=== PATIENT | male | born 1980 | race Caucasian/White ===

== ENCOUNTER 2018-02-10 14:29 | Day surgery (SDC) | payer OTHER, MEDICAID ==
[2018-02-10] MEDS ORDERED: LR 1,000 ML IV ONE (15:10)
[2018-02-10] MEDS ORDERED: LIDOCAINE 1% 2 ML INJ ID PRN (15:10)
--- NOTE | 2018-02-10 16:43 | PDANEPAE ---
ANE History of Present Illness Inguinal hernia ANE Past Medical History - Cardiovascular History Hx Hypertension: No Hx Arrhythmias: No Hx Chest Pain: No Hx Coronary Artery / Peripheral Vascular Disease: No Hx CHF / Valvular Disease: No Hx Palpitations: No - Pulmonary History Hx COPD: No Hx Asthma/Reactive Airway Disease: No Hx Sleep Apnea: Yes - Endocrine History Hx Diabetes: No - Neurological & Psychiatric Hx Hx Neurological and Psychiatric Disorders: Yes - Chronic Pain History Chronic Pain: No ANE Review of Systems Review of Systems: - Systems Neurological: Reports: other (Head injury with memory, right weakness and balance diff.) ANE Patient History - Allergies Allergies/Adverse Reactions: No Known Allergies Allergy (Verified 09/01/14 01:32) - NPO status NPO Since - Liquids (Date): 02/10/18 NPO Since - Liquids (Time): 08:30 NPO Since - Solids (Date): 02/09/18 NPO Since - Solids (Time): 18:30 - Anes Hx Anes Hx: no prior problems - Smoking Hx Smoking Status: Former smoker ANE Labs/Vital Signs - Vital Signs Blood Pressure: 129/84 Heart Rate: 76 Respiratory Rate: 20 O2 Sat (%): 97 Height: 193.04 cm Weight: 85.729 kg ANE Physical Exam - Airway Neck exam: FROM Mallampati Score: Class 2 Mouth exam: normal dental/mouth exam - Pulmonary Pulmonary: no respiratory distress - Cardiovascular Cardiovascular: regular rate and rhythym - ASA Status ASA Status: II ANE Anesthesia Plan Anesthesia Plan: general endotracheal anesthesia
[2018-02-10] MEDS ORDERED: MIDAZOLAM 2 MG/2 ML VIAL IVP ONE (16:53)
[2018-02-10] MEDS ORDERED: LIDOCAINE 1% 300 MG/30 ML SDV ONE (17:51)
[2018-02-10] MEDS ORDERED: BUPIVACAINE 0.5% 30 ML SDV ONE (17:52)
[2018-02-10] MEDS ORDERED: fentaNYL 100 MCG/2 ML INJ ONE ×3 (17:54→20:42)
[2018-02-10] MEDS ORDERED: PROPOFOL 200 MG/20 ML VIAL ONE (17:55)
[2018-02-10] MEDS ORDERED: GLYCOPYRROLATE 0.2 MG/1 ML VIAL ONE (17:56)
[2018-02-10] MEDS ORDERED: ROCURONIUM 50 MG/5 ML VIAL ONE ×2 (17:57→18:46)
--- NOTE | 2018-02-10 18:02 | PDHPUP ---
History & Physical Update H&P update statement: This history and physical update is based on an assessment of the patient which was completed after admission or registration (within 24 hours), but prior to the surgery/procedure. H&P update: H&P reviewed & patient examined, no change in patient's condition since H&P completed
--- NOTE | 2018-02-10 18:05 | PDGENHP ---
History & Physical Chief Complaint: inguinal hernia History of Present Illness: 37 yo with symptomatic right inguinal hernia. Non obstructive. Lifts weight regularly. TBI from prior anoxic brain injury Pertinent Past, Social, Family History: TBI. No ilicit drugs, etoh, tobacco. Appy, pelvis reconstruction/tendon transfer. Relevant Physical Exam: Reducible RIH Cardiorespiratory Assessment: RRR. CTA
--- NOTE | 2018-02-10 18:11 | POSTOPPROG ---
Post Op Note Date of Operation: 02/10/18 Surgeon: Shine Hussein Actimize Architect: none Anesthesiologist: Stacie Anesthesia: GET(General Endotracheal) Pre-op Diagnosis: RIH Post-op Diagnosis: same Procedure: B/L LAP TEP IH repair with 3-d max mesh Inf/Abcess present in the surg proc area at time of surgery?: No Complications: none Specimen(s): none
[2018-02-10] MEDS ORDERED: DEXAMETHASONE 4 MG/ML VIAL ONE (18:22)
[2018-02-10] MEDS ORDERED: ONDANSETRON 4 MG/2 ML VIAL ONE (18:22)
[2018-02-10] MEDS ORDERED: KETOROLAC 30 MG/1 ML SDV ONE (18:22)
[2018-02-10] MEDS ORDERED: HYDROmorphONE/DILAUDID 2 MG/ML INJ IVP PRN (18:43)
[2018-02-10] MEDS ORDERED: fentaNYL 100 MCG/2 ML INJ IVP PRN (18:43)
[2018-02-10] MEDS ORDERED: ONDANSETRON 4 MG/2 ML VIAL IVP PRN (18:43)
[2018-02-10] MEDS ORDERED: NALOXONE HCL 0.4 MG/ML INJ IVP PRN (18:43)
[2018-02-10] MEDS ORDERED: SUGAMMADEX SODIUM 200 MG/2 ML VIAL IVP ONE (19:04)
--- NOTE | 2018-02-10 19:31 | POSTANESTH ---
Post Anesthetic Evaluation Cardiovascular Status: Similar to Pre-Op Cond Respiratory Status: Similar to Pre-op Cond. Level of Consciousness/Mental Status: Alert and Oriented Pain Control: Adequate, Prn Tx Ordered Nausea/Vomiting Control: Adequate, Prn Tx Ordered Complications Possibly Related to Anesthesia: None Noted
[2018-02-10] MEDS ORDERED: HYDROmorphONE/DILAUDID 2 MG/ML INJ ONE (19:50)
--- NOTE | 2018-02-10 19:53 | GOP ---
DATE OF OPERATION: SURGEON: Shine Hussein MD ANESTHESIA: General endotracheal anesthesia. ANESTHESIOLOGIST: Pradeep Quinones MD. PREOPERATIVE DIAGNOSIS: Right inguinal hernia. POSTOPERATIVE DIAGNOSIS: Bilateral inguinal hernia. PROCEDURE PERFORMED: Laparoscopic bilateral inguinal hernia repair, totally extraperitoneal procedur e with mesh. FINDINGS: Previous plate in the pelvis. Indirect inguinal hernia on the right and small indirect on the left. SPECIMENS: None. ESTIMATED BLOOD LOSS: 10 mL. INDICATIONS: A 37-year-old gentleman who presents with right inguinal hernia from previous lifting. DESCRIPTION OF PROCEDURE: The patient was brought into the operating room after induction of endotra cheal anesthesia in supine position. Abdomen was prepped with chlorhexidine and draped sterilely. T bola-out procedure was performed according to institutional standards. Local anesthetic was infused i n the skin and subcutaneous tissues of the trocar sites as well as a field block bilaterally. Open p reperitoneal trocar placement was done on the right side by incising the skin underneath the umbilicu s, deepening this with electrocautery. Transverse incision on the rectus sheath which was then swept laterally. The balloon dissector was used to create the space which was maintained at 15 TOR with c arbon dioxide. Through his previous pelvic surgery, the patient had a small rent to the perineum, wh ich was easily controlled with Ligaclips. The pubic tubercle to the anterior superior iliac spine on the right was dissected out. A large inguinal hernia was identified and reduced. The 3DMax mesh wa s then interposed between the pelvis, hernia defect, and the perineum. A similar dissection was done on the left side with dissection from the anterior superior iliac spine to the pubic tubercle. The mesh was then interposed between the peritoneum and the hernia defect on that side and the area was a llowed to collapse. Hemostasis was assured. The rent to the peritoneum was completely closed. The fascia was reapproximated using 0 Vicryl and all ports were reapproximated at the skin level using 4- 0 Monocryl. Dermabond was applied. The patient was awakened, extubated, and taken to the recovery r oom in stable condition. No immediate complications. COMPLICATIONS: None. Copy requested to: Dr. Tamir Merritt #: [id number]
[2018-02-10] MEDS ORDERED: oxyCODONE IR 5 MG TAB PO ONE (21:00)
[2018-02-10 21:40] VITALS: BP 124/70
== END 2018-02-10 21:35 | disposition home or self-care (01) ==
LOC: FSGY 14:29
PROVIDERS: ATTEND Surgery
PROC: 0YUA4JZ Supplement Bilateral Inguinal Region with Synthetic Substitute, Percutaneous Endoscopic Approach (ICD-10-PCS; principal; 2018-02-10 16:00)
DX: K40.20 Bilateral inguinal hernia, without obstruction or gangrene, not specified as recurrent (principal); Z87.820 Personal history of traumatic brain injury
CPT/HCPCS: C1727; C1781; J1100; J1170; J1885; J2250; J2405; J2704; J3010